=== PATIENT | male | born 1955 | race African-American/Black ===

== ENCOUNTER 2017-03-08 10:06 | Inpatient (IN) | payer MEDICAID ==
[~2017-03-08] VITALS: Ht 175.3 cm; Wt 60.3 kg
[~2017-03-08 10:06] MED LIST: ATOR10TA69 PO; TIMO15DR12 EACHEYE
[2017-03-08] MEDS ORDERED: SODIUM CHLORIDE 0.9% 1,000 ML IV ONE ×2 (10:25→12:57)
[2017-03-08] MEDS ORDERED: MORPHINE SULFATE 4 MG/ML CPJ (NOT FOR IM USE) IV STA (10:25)
[2017-03-08] MEDS ORDERED: ONDANSETRON HCL 4MG/2ML VIAL IV STA (10:25)
[2017-03-08 11:41] LABS: BASOPHILS % 0.6 % (0.0-2.0); EOSINOPHILS % 0.8 % (0.0-5.0); HEMATOCRIT. 41.9 % (42.0-52.0); LYMPHOCYTES % 39.1 % (20.0-50.0); MEAN CORPUSCULAR HEMOGLOBIN 31.1 pg (28.0-32.0); MEAN PLATELET VOLUME 9.4 fl (7.4-10.4); MONOCYTES % 9.5 % (2.0-8.0); PLATELET 188 x1000/uL (130-400); RED BLOOD CELL COUNT 4.51 mill/uL (4.7-6.1); RED CELL DISTRIBUTION WIDTH 13.9 % (11.6-14.6)
[2017-03-08 11:51] LABS: INR 1.2; PARTIAL THROMBOPLASTIN TIME 25.2 sec (24.0-34.0); PROTHROMBIN TIME 12.7 sec
[2017-03-08 11:59] LABS: CARBON DIOXIDE 31 mEq/L (21-32); CHLORIDE 102 mEq/L (98-107); ETHANOL BLOOD < 10 mg/dL; TROPONIN I 0.03 ng/mL (0.00-0.04)
[2017-03-08] MEDS ORDERED: PIPERACILLIN/TAZ 3.375G PREMIX 50 ML IV ONE (13:00)
[2017-03-08] MEDS ORDERED: ONDANSETRON HCL 4MG/2ML VIAL IV ONE (13:45)
[2017-03-08 14:00] LABS: CLARITY URINE CLOUDY (CLEAR); COLOR URINE YELLOW (YELLOW); GLUCOSE URINE NEGATIVE (NEGATIVE); KETONES URINE 1+ (NEGATIVE); LEUKOCYTE ESTERASE URINE NEGATIVE (NEGATIVE); NITRITE URINE NEGATIVE (NEGATIVE); OCCULT BLOOD URINE 2+ (NEGATIVE); PH URINE 6.5 (4.5-8.0); PROTEIN URINE 2+ (NEGATIVE); SPECIFIC GRAVITY URINE 1.021 (1.005-1.030)
[2017-03-08] MEDS ORDERED: ONDANSETRON HCL 4MG/2ML VIAL IV PRN (15:15)
[2017-03-08] MEDS ORDERED: MAGNESIUM/ALUMINUM HYDROXIDE/SIMETHICONE 30ML UDC PO PRN (15:15)
[2017-03-08] MEDS ORDERED: HYDROCODONE/ACETAMINOPHEN 5/325MG TABLET PO PRN (15:15)
[2017-03-08] MEDS ORDERED: CLONIDINE 0.1MG TABLET PO PRN (15:15)
[2017-03-08] MEDS ORDERED: ACETAMINOPHEN 325MG TABLET PO PRN (15:15)
[2017-03-08] MEDS ORDERED: DOCUSATE SODIUM 100MG CAPSULE PO PRN (15:15)
[2017-03-08] MEDS ORDERED: IPRATROPIUM/ALBUTEROL 0.5-3(2.5)MG/3ML NEB INH PRN (15:15)
[2017-03-08] MEDS ORDERED: ROCEPHIN IVPB XX SCH (17:00)
[2017-03-08 17:02] VITALS: BP 124/96
[2017-03-08 17:12] VITALS: BP 124/96
[2017-03-08 17:30] VITALS: BP 123/96
[2017-03-08] MEDS ORDERED: CHOL100026 PO (17:42)
[2017-03-08] MEDS ORDERED: LISI-604 PO (17:42)
[2017-03-08] MEDS ORDERED: METO50TA5 PO (17:42)
[2017-03-08] MEDS ORDERED: HYDR25TA PO (17:42)
[2017-03-08] MEDS ORDERED: ALBU18HF2 IH (17:42)
[2017-03-08] MEDS ORDERED: SIMV10TA6 PO (17:42)
[2017-03-08] MEDS ORDERED: OMEP20TA80 PO (17:42)
[2017-03-08] MEDS ORDERED: MOME13HF2 INH (17:42)
[2017-03-08] MEDS ORDERED: NON FORMULARY PATIENT HOME MED EA XX SCH (17:45)
[2017-03-08] MEDS: SODIUM CHLORIDE 0.9% 1,000 ML IV SCH (17:58)
[2017-03-08] MEDS ORDERED: CEFTRIAXONE 1 G PREMIX 50 ML IV SCH (18:00)
[2017-03-08] MEDS: ENOXAPARIN 40MG/0.4ML SYR SUBCUT SCH (18:05)
[2017-03-08 20:00] VITALS: BP 107/73
[2017-03-08] MEDS: METOPROLOL TARTRATE 25MG TABLET PO SCH (20:43)
[2017-03-08] MEDS: ATORVASTATIN CALCIUM 10MG TABLET PO SCH (20:48)
[2017-03-08 23:40] LABS: CREATINE KINASE MB FRACTION 4.7 ng/mL (0.5-3.6); TROPONIN I < 0.02 ng/mL (0.00-0.04)
[2017-03-08 23:44] LABS: CREATINE KINASE 1145 IU/L (39-308)
[2017-03-09] VITALS: BP 100/68
[2017-03-09] MEDS: SODIUM CHLORIDE 0.9% 1,000 ML IV SCH ×3 (02:50→22:10)
[2017-03-09 04:00] VITALS: BP 101/72
[2017-03-09 05:42] LABS: BASOPHILS % 0.8 % (0.0-2.0); HEMATOCRIT. 37.9 % (42.0-52.0); HEMOGLOBIN. 12.9 g/dL (14.0-18.0); LYMPHOCYTES % 54.2 % (20.0-50.0); MEAN CORPUSCULAR HEMOGLOBIN 31.5 pg (28.0-32.0); MEAN CORPUSCULAR VOLUME 92.2 fL (80.0-94.0); MEAN PLATELET VOLUME 9.2 fl (7.4-10.4); MONOCYTES % 8.3 % (2.0-8.0); NEUTROPHILS % 33.7 % (40.0-76.0); PLATELET 173 x1000/uL (130-400); RED BLOOD CELL COUNT 4.12 mill/uL (4.7-6.1); RED CELL DISTRIBUTION WIDTH 14.1 % (11.6-14.6)
[2017-03-09] MEDS: OMEPRAZOLE 20MG CAPSULE EXTENDED RELEASE PO SCH (06:26)
[2017-03-09 06:39] LABS: CARBON DIOXIDE 27 mEq/L (21-32); CHLORIDE 105 mEq/L (98-107); CREATINE KINASE 900 IU/L (39-308); CREATINE KINASE MB FRACTION 3.4 ng/mL (0.5-3.6); HDL CHOLESTEROL 47 mg/dL (40-59); LDL CHOLESTEROL 56 mg/dL (5-100); TROPONIN I < 0.02 ng/mL (0.00-0.04)
[2017-03-09 08:05] VITALS: BP 100/71
[2017-03-09] MEDS: LISINOPRIL 20MG TABLET PO SCH (09:00)
[2017-03-09] MEDS ORDERED: HYDROCHLOROTHIAZIDE 25MG TABLET PO SCH (09:00)
[2017-03-09 09:23] LABS: *AMPHETAMINES SCREEN URINE NEGATIVE (NEGATIVE); *BARBITURATES SCREEN URINE NEGATIVE (NEGATIVE); *BENZODIAZEPINES SCREEN URINE PRESUMTIVE POSITIVE (NEGATIVE); *COCAINE SCREEN URINE PRESUMTIVE POSITIVE (NEGATIVE); CANNABINOID URINE SCREEN NEGATIVE (NEGATIVE); METHADONE URINE SCREEN NEGATIVE (NEGATIVE); PHENCYCLIDINE URINE SCREEN NEGATIVE (NEGATIVE)
[2017-03-09] MEDS: METOPROLOL TARTRATE 25MG TABLET PO SCH ×2 (10:03→21:00)
[2017-03-09] MEDS: CHOLECALCIFEROL (D3) 1000 UNIT TABLET PO SCH ×2 (10:03→18:04)
[2017-03-09 10:07] LABS: OPIATES URINE SCREEN PRESUMTIVE POSITIVE (NEGATIVE)
[2017-03-09 12:00] VITALS: BP 104/76
[2017-03-09] MEDS ORDERED: POTASSIUM CHLORIDE 20MEQ TABLET SR PO NR (12:00)
[2017-03-09 16:00] VITALS: BP 108/68
[2017-03-09] MEDS: ENOXAPARIN 40MG/0.4ML SYR SUBCUT SCH (18:04)
[2017-03-09 20:00] VITALS: BP 116/67
[2017-03-09] MEDS: ATORVASTATIN CALCIUM 10MG TABLET PO SCH (22:06)
[2017-03-09] MEDS: CEFTRIAXONE 1 G PREMIX 50 ML IV SCH (22:06)
[2017-03-10] VITALS: BP 106/72
[2017-03-10 04:00] VITALS: BP 104/74
[2017-03-10] MEDS: OMEPRAZOLE 20MG CAPSULE EXTENDED RELEASE PO SCH (06:24)
[2017-03-10] MEDS: SODIUM CHLORIDE 0.9% 1,000 ML IV SCH ×2 (07:44→20:53)
[2017-03-10 07:48] LABS: CARBON DIOXIDE 30 mEq/L (21-32); CHLORIDE 103 mEq/L (98-107)
[2017-03-10 07:53] LABS: CREATINE KINASE 437 IU/L (39-308)
[2017-03-10 08:08] VITALS: BP 137/88
[2017-03-10 08:16] LABS: BASOPHILS % 0.5 % (0.0-2.0); EOSINOPHILS % 5.2 % (0.0-5.0); HEMATOCRIT. 37.2 % (42.0-52.0); HEMOGLOBIN. 12.8 g/dL (14.0-18.0); LYMPHOCYTES % 58.6 % (20.0-50.0); MEAN CORPUSCULAR HEMOGLOBIN 31.5 pg (28.0-32.0); MEAN CORPUSCULAR VOLUME 91.6 fL (80.0-94.0); MEAN PLATELET VOLUME 9.6 fl (7.4-10.4); MONOCYTES % 8.8 % (2.0-8.0); NEUTROPHILS % 26.9 % (40.0-76.0); PLATELET 170 x1000/uL (130-400); RED BLOOD CELL COUNT 4.06 mill/uL (4.7-6.1)
[2017-03-10] MEDS: LISINOPRIL 20MG TABLET PO SCH (08:55)
[2017-03-10] MEDS: CHOLECALCIFEROL (D3) 1000 UNIT TABLET PO SCH ×2 (08:55→16:43)
[2017-03-10] MEDS: METOPROLOL TARTRATE 25MG TABLET PO SCH ×2 (08:55→20:50)
[2017-03-10] MEDS ORDERED: POTASSIUM CHLORIDE 20MEQ TABLET SR PO NR (09:00)
[2017-03-10 12:00] VITALS: BP 103/84
[2017-03-10 16:00] VITALS: BP 120/95
[2017-03-10] MEDS: ENOXAPARIN 40MG/0.4ML SYR SUBCUT SCH (16:43)
[2017-03-10 20:00] VITALS: BP 129/87
[2017-03-10] MEDS: CEFTRIAXONE 1 G PREMIX 50 ML IV SCH (20:49)
[2017-03-10] MEDS: ATORVASTATIN CALCIUM 10MG TABLET PO SCH (20:49)
[2017-03-11] VITALS: BP 133/86
[2017-03-11 04:00] VITALS: BP 141/85
[2017-03-11] MEDS: SODIUM CHLORIDE 0.9% 1,000 ML IV SCH (05:00)
[2017-03-11] MEDS: OMEPRAZOLE 20MG CAPSULE EXTENDED RELEASE PO SCH (06:39)
[2017-03-11 07:26] LABS: CHLORIDE 108 mEq/L (98-107)
[2017-03-11 07:32] LABS: CARBON DIOXIDE 25 mEq/L (21-32)
[2017-03-11 08:20] VITALS: BP 115/88
[2017-03-11] MEDS: LISINOPRIL 20MG TABLET PO SCH (08:45)
[2017-03-11] MEDS: METOPROLOL TARTRATE 25MG TABLET PO SCH (08:45)
[2017-03-11] MEDS: CHOLECALCIFEROL (D3) 1000 UNIT TABLET PO SCH (08:45)
[2017-03-11] MEDS ORDERED: POTASSIUM CHLORIDE 20MEQ TABLET SR PO NR (11:30)
[2017-03-11 12:00] VITALS: BP 146/96
[2017-03-11 13:43] VITALS: BP 139/89
[2017-03-12 13:09] LABS: ANTI-NUCLEAR ANTIBODIES DIRECT Negative (Negative)
[2017-03-13 07:22] LABS: COMPLEMENT C3 102 mg/dL (82-167)
== END 2017-03-11 14:45 | disposition home or self-care (01) | DRG 241 ==
LOC: ER 10:22 → 6WST 13:07 → ENRESERV 14:53
PROVIDERS: ADMIT Internal Medicine; ATTEND Internal Medicine
DX: K29.70 Gastritis, unspecified, without bleeding (principal); N17.9 Acute kidney failure, unspecified; I95.9 Hypotension, unspecified; I13.0 Hypertensive heart and chronic kidney disease with heart failure and stage 1 through stage 4 chronic kidney disease, or unspecified chronic kidney disease; M62.82 Rhabdomyolysis; E87.2 Acidosis; I50.9 Heart failure, unspecified; K76.0 Fatty (change of) liver, not elsewhere classified; K80.20 Calculus of gallbladder without cholecystitis without obstruction; E78.00 Pure hypercholesterolemia, unspecified; E78.5 Hyperlipidemia, unspecified; E86.0 Dehydration; E87.6 Hypokalemia; F14.10 Cocaine abuse, uncomplicated; H40.9 Unspecified glaucoma; F11.10 Opioid abuse, uncomplicated; R80.9 Proteinuria, unspecified; N18.1 Chronic kidney disease, stage 1; Z79.899 Other long term (current) drug therapy; I25.2 Old myocardial infarction
CPT/HCPCS: 36415; 51702; 70450; 71010; 74176; 76705; 80048; 80053; 80061; 80305; 81001; 82550; 82553; 83605; 83690; 83735; 83880; 84443; 84484; 85025; 85610; 85730; 86038; 86160; 87040; 87086; 93005; 93970; 96361; 96365; 96375; 96376; 97162; 97166; 99291; G0482; J0696; J1650; J2270; J2405; J2543; J7030; A4315

== ENCOUNTER 2017-05-06 09:24 | Inpatient (IN) | payer MEDICAID ==
[2017-05-06] VITALS (7 sets, daily range): BP systolic 81–105; BP diastolic 53–72
[~2017-05-06] VITALS: Ht 175.3 cm; Wt 98.0 kg
[~2017-05-06 09:24] MED LIST changes: +ALBU18HF2 IH; +CHOL100044 PO; +HYDR25TA PO; +LISI-604 PO; +METO50TA5 PO; +MOME13HF2 INH; +OMEP20TA2 PO; +SIMV10TA6 PO
[2017-05-06] MEDS ORDERED: SODIUM CHLORIDE 0.9% 1000ML BAG (SEPSIS BOLUS) IV ONE (09:45)
[2017-05-06 10:08] LABS: BASOPHILS % 0.9 % (0.0-2.0); EOSINOPHILS % 2.8 % (0.0-5.0); HEMATOCRIT. 41.8 % (42.0-52.0); HEMOGLOBIN. 14.2 g/dL (14.0-18.0); LYMPHOCYTES % 35.6 % (20.0-50.0); MEAN CORPUSCULAR HEMOGLOBIN 30.9 pg (28.0-32.0); MEAN CORPUSCULAR VOLUME 91.3 fL (80.0-94.0); MONOCYTES % 8.5 % (2.0-8.0); NEUTROPHILS % 52.2 % (40.0-76.0); PLATELET 181 x1000/uL (130-400); RED BLOOD CELL COUNT 4.58 mill/uL (4.7-6.1); RED CELL DISTRIBUTION WIDTH 14.3 % (11.6-14.6)
[2017-05-06 10:18] LABS: CLARITY URINE CLEAR (CLEAR); COLOR URINE DARK YELLOW (YELLOW); GLUCOSE URINE NEGATIVE (NEGATIVE); KETONES URINE TRACE (NEGATIVE); LEUKOCYTE ESTERASE URINE NEGATIVE (NEGATIVE); NITRITE URINE NEGATIVE (NEGATIVE); OCCULT BLOOD URINE NEGATIVE (NEGATIVE); PH URINE 5.5 (4.5-8.0); PROTEIN URINE 2+ (NEGATIVE); SPECIFIC GRAVITY URINE 1.025 (1.005-1.030)
[2017-05-06 10:18] LABS: INR 1.1; PARTIAL THROMBOPLASTIN TIME 27.7 sec (23.4-31.0); PROTHROMBIN TIME 11.8 sec (9.4-11.6)
[2017-05-06 10:20] LABS: AMMONIA 27 uMol/L (<32)
[2017-05-06 10:24] LABS: CARBON DIOXIDE 25 mEq/L (21-32); CHLORIDE 103 mEq/L (98-107); ETHANOL BLOOD < 10 mg/dL; TROPONIN I 0.02 ng/mL (0.00-0.04)
[2017-05-06 10:29] LABS: BG BASE EXCESS -6.6 mmol/L (-2.0-2.0); BG CARBOXYHEMOGLOBIN 1.4 % (0.5-1.5); BG DEOXYHEMOGLOBIN 3.5 % (0.0-5.0); BG FRACTION INSPIRED OXYGEN 28; BG HCO3 ACT 17.5 mmol/L (22.0-26.0); BG METHEMOGLOBIN 0.3 % (0.0-1.5); BG OXYGEN SATURATION 96.4 % (92.0-98.5); BG OXYHEMOGLOBIN 94.8 % (94.0-97.0); BG PCO2 30.6 mmHg (35.0-45.0); BG PH 7.375 (7.350-7.450); BG PO2 94.2 mmHg (75.0-100.0); BG SAMPLE SITE OTHER; BG TOTAL HEMOGLOBIN 12.3 g/dL (12.0-18.0); BG VENT MODE NASAL CANNULA
[2017-05-06 10:50] LABS: *AMPHETAMINES SCREEN URINE NEGATIVE (NEGATIVE); *BARBITURATES SCREEN URINE NEGATIVE (NEGATIVE); *BENZODIAZEPINES SCREEN URINE NEGATIVE (NEGATIVE); *COCAINE SCREEN URINE PRESUMTIVE POSITIVE (NEGATIVE); CANNABINOID URINE SCREEN NEGATIVE (NEGATIVE); METHADONE URINE SCREEN NEGATIVE (NEGATIVE); OPIATES URINE SCREEN NEGATIVE (NEGATIVE); PHENCYCLIDINE URINE SCREEN NEGATIVE (NEGATIVE)
[2017-05-06] MEDS ORDERED: MAGNESIUM/ALUMINUM HYDROXIDE/SIMETHICONE 30ML UDC PO PRN (15:15)
[2017-05-06] MEDS ORDERED: DOCUSATE SODIUM 100MG CAPSULE PO PRN (15:15)
[2017-05-06] MEDS ORDERED: ACETAMINOPHEN 325MG TABLET PO PRN (15:15)
[2017-05-06] MEDS ORDERED: CLONIDINE 0.1MG TABLET PO PRN (15:15)
[2017-05-06] MEDS ORDERED: IPRATROPIUM/ALBUTEROL 0.5-3(2.5)MG/3ML NEB INH PRN (15:15)
[2017-05-06] MEDS ORDERED: ONDANSETRON HCL 4MG/2ML VIAL IV PRN (15:15)
[2017-05-06] MEDS: SODIUM CHLORIDE 0.9% 1,000 ML IV SCH (16:00)
[2017-05-06] MEDS: ENOXAPARIN 40MG/0.4ML SYR SUBCUT SCH (16:13)
[2017-05-06 17:03] LABS: CLARITY URINE CLEAR (CLEAR); COLOR URINE YELLOW (YELLOW); GLUCOSE URINE NEGATIVE (NEGATIVE); KETONES URINE NEGATIVE (NEGATIVE); LEUKOCYTE ESTERASE URINE NEGATIVE (NEGATIVE); NITRITE URINE NEGATIVE (NEGATIVE); OCCULT BLOOD URINE NEGATIVE (NEGATIVE); PROTEIN URINE NEGATIVE (NEGATIVE); SPECIFIC GRAVITY URINE 1.016 (1.005-1.030)
[2017-05-06] MEDS ORDERED: POTASSIUM CHLORIDE 20MEQ TABLET SR PO NR (18:00)
[2017-05-06 23:33] LABS: CREATINE KINASE MB FRACTION 3.4 ng/mL (0.5-3.6); TROPONIN I 0.04 ng/mL (0.00-0.04)
[2017-05-07] VITALS (16 sets, daily range): BP systolic 98–154; BP diastolic 62–101
[2017-05-07] MEDS: SODIUM CHLORIDE 0.9% 1,000 ML IV SCH ×3 (01:15→20:49)
[2017-05-07 07:19] LABS: CARBON DIOXIDE 25 mEq/L (21-32); CHLORIDE 109 mEq/L (98-107); CREATINE KINASE 533 IU/L (39-308); CREATINE KINASE MB FRACTION 2.4 ng/mL (0.5-3.6); HDL CHOLESTEROL 43 mg/dL (40-59); LDL CHOLESTEROL 102 mg/dL (5-100); TROPONIN I 0.02 ng/mL (0.00-0.04)
[2017-05-07 07:40] LABS: BASOPHILS % 0.5 % (0.0-2.0); HEMATOCRIT. 36.4 % (42.0-52.0); HEMOGLOBIN. 12.3 g/dL (14.0-18.0); LYMPHOCYTES % 54.9 % (20.0-50.0); MEAN CORPUSCULAR HEMOGLOBIN 31.3 pg (28.0-32.0); MEAN CORPUSCULAR VOLUME 92.3 fL (80.0-94.0); MEAN PLATELET VOLUME 9.4 fl (7.4-10.4); NEUTROPHILS % 31.6 % (40.0-76.0); PLATELET 159 x1000/uL (130-400); RED BLOOD CELL COUNT 3.95 mill/uL (4.7-6.1)
[2017-05-07] MEDS ORDERED: POTASSIUM CHLORIDE 20MEQ TABLET SR PO SCH (12:00)
[2017-05-07] MEDS: ENOXAPARIN 40MG/0.4ML SYR SUBCUT SCH (16:47)
[2017-05-08] VITALS (11 sets, daily range): BP systolic 117–164; BP diastolic 52–101
[2017-05-08] MEDS: SODIUM CHLORIDE 0.9% 1,000 ML IV SCH (06:42)
[2017-05-08 07:35] LABS: CHLORIDE 109 mEq/L (98-107)
[2017-05-08 07:40] LABS: CARBON DIOXIDE 27 mEq/L (21-32)
[2017-05-08] MEDS ORDERED: ENOXAPARIN 30MG/0.3ML SYR SUBCUT SCH (09:00)
[2017-05-08 09:19] LABS: BASOPHILS % 0.5 % (0.0-2.0); CARBON DIOXIDE 27 mEq/L (21-32); CHLORIDE 107 mEq/L (98-107); EOSINOPHILS % 5.6 % (0.0-5.0); HEMATOCRIT. 36.2 % (42.0-52.0); HEMOGLOBIN. 12.3 g/dL (14.0-18.0); LYMPHOCYTES % 52.7 % (20.0-50.0); MEAN CORPUSCULAR HEMOGLOBIN 31.2 pg (28.0-32.0); MEAN CORPUSCULAR VOLUME 91.7 fL (80.0-94.0); MEAN PLATELET VOLUME 9.4 fl (7.4-10.4); MONOCYTES % 8.8 % (2.0-8.0); NEUTROPHILS % 32.4 % (40.0-76.0); PLATELET 156 x1000/uL (130-400); RED BLOOD CELL COUNT 3.94 mill/uL (4.7-6.1); RED CELL DISTRIBUTION WIDTH 14.1 % (11.6-14.6)
[2017-05-08] MEDS ORDERED: POTASSIUM CHLORIDE 20MEQ TABLET SR PO NR (12:00)
[2017-05-08] MEDS ORDERED: LISI10TA5 PO (12:54)
[2017-05-08] MEDS ORDERED: SIMV10TA2 PO (12:54)
== END 2017-05-08 17:38 | disposition home or self-care (01) | DRG 133 ==
LOC: ER 09:38 → EDBEDREQ 11:15 → 3WST 11:48 → EDBEDREQ 11:49 → EDBEDREQSVC 11:51 → ENRESERV 11:57
PROVIDERS: ADMIT Internal Medicine; ATTEND Internal Medicine
PROC: 02HV33Z Insertion of Infusion Device into Superior Vena Cava, Percutaneous Approach (ICD-10-PCS; principal; 2017-05-06)
PROC: B5181ZA Fluoroscopy of Superior Vena Cava using Low Osmolar Contrast, Guidance (ICD-10-PCS; 2017-05-06)
PROC: B548ZZA Ultrasonography of Superior Vena Cava, Guidance (ICD-10-PCS; 2017-05-06)
DX: J96.00 Acute respiratory failure, unspecified whether with hypoxia or hypercapnia (principal); N17.9 Acute kidney failure, unspecified; I95.9 Hypotension, unspecified; E83.51 Hypocalcemia; E86.0 Dehydration; J44.9 Chronic obstructive pulmonary disease, unspecified; E87.6 Hypokalemia; F14.10 Cocaine abuse, uncomplicated; E78.5 Hyperlipidemia, unspecified; E78.00 Pure hypercholesterolemia, unspecified; H40.9 Unspecified glaucoma; F17.210 Nicotine dependence, cigarettes, uncomplicated; I25.10 Atherosclerotic heart disease of native coronary artery without angina pectoris; I10 Essential (primary) hypertension; I25.2 Old myocardial infarction; Z79.899 Other long term (current) drug therapy
CPT/HCPCS: 36415; 36569; 36600; 70450; 71010; 76770; 76937; 77001; 80048; 80053; 80061; 80305; 81001; 81003; 82140; 82375; 82550; 82553; 82805; 83605; 83690; 83735; 83880; 84443; 84484; 85025; 85610; 85730; 86850; 86900; 87040; 87086; 93005; 93306; 93970; 96360; 96361; 99291; C1725; G0482; J1650; J7030

== ENCOUNTER 2018-03-06 12:38 | Emergency (ER) | payer MEDICAID ==
[~2018-03-06] VITALS: Ht 172.7 cm; Wt 85.0 kg
[~2018-03-06 12:38] MED LIST changes: -ATOR10TA69 PO; -HYDR25TA PO; -LISI-604 PO; +METO25TA6 PO; -METO50TA5 PO
[2018-03-06] MEDS ORDERED: SODIUM CHLORIDE 0.9% 1,000 ML IV ONE (13:30)
[2018-03-06 14:18] LABS: BASOPHILS % 0.7 % (0.0-2.0); EOSINOPHILS % 0.9 % (0.0-5.0); HEMATOCRIT. 48.3 % (42.0-52.0); HEMOGLOBIN. 16.4 g/dL (14.0-18.0); LYMPHOCYTES % 36.8 % (20.0-50.0); MEAN CORPUSCULAR HEMOGLOBIN 30.9 pg (28.0-32.0); MEAN CORPUSCULAR VOLUME 90.9 fL (80.0-94.0); MEAN PLATELET VOLUME 8.9 fl (7.4-10.4); MONOCYTES % 6.3 % (2.0-8.0); NEUTROPHILS % 55.3 % (40.0-76.0); PLATELET 218 x1000/uL (130-400); RED BLOOD CELL COUNT 5.31 mill/uL (4.7-6.1); RED CELL DISTRIBUTION WIDTH 15.4 % (11.6-14.6)
[2018-03-06 14:25] LABS: CHLORIDE 101 mEq/L (98-107)
[2018-03-06 14:29] LABS: ETHANOL BLOOD < 10 mg/dL
[2018-03-06 16:19] VITALS: BP 133/79
[2018-03-06 18:01] LABS: *AMPHETAMINES SCREEN URINE NEGATIVE (NEGATIVE); *BARBITURATES SCREEN URINE NEGATIVE (NEGATIVE); *BENZODIAZEPINES SCREEN URINE NEGATIVE (NEGATIVE)
[2018-03-06 18:02] LABS: *COCAINE SCREEN URINE PRESUMTIVE POSITIVE (NEGATIVE); CANNABINOID URINE SCREEN NEGATIVE (NEGATIVE); METHADONE URINE SCREEN NEGATIVE (NEGATIVE); OPIATES URINE SCREEN NEGATIVE (NEGATIVE); PHENCYCLIDINE URINE SCREEN NEGATIVE (NEGATIVE)
== END 2018-03-06 16:37 | disposition home or self-care (01) ==
LOC: ER 12:38
DX: R53.1 Weakness (principal); R00.0 Tachycardia, unspecified; E78.00 Pure hypercholesterolemia, unspecified; E11.9 Type 2 diabetes mellitus without complications; Z79.899 Other long term (current) drug therapy
CPT/HCPCS: 36415; 70450; 80053; 80305; 82962; 85025; 93005; 96360; 96361; 99285; G0482; J7030

== ENCOUNTER 2018-10-23 05:58 | Emergency (ER) | payer MEDICAID ==
[~2018-10-23] VITALS: Ht 177.8 cm; Wt 100.0 kg
[~2018-10-23 05:58] MED LIST changes: -METO25TA6 PO
[2018-10-23] MEDS ORDERED: ONDANSETRON HCL 4MG/2ML INJ IV STA (07:50)
[2018-10-23] MEDS ORDERED: SODIUM CHLORIDE 0.9% 500 ML IV NR (08:30)
[2018-10-23 08:49] LABS: MEAN CORPUSCULAR HEMOGLOBIN 31.2 pg (28.0-32.0); MEAN CORPUSCULAR VOLUME 93.3 fL (80.0-94.0); MEAN PLATELET VOLUME 9.3 fl (7.4-10.4); PLATELET 198 x1000/uL (130-400); RED BLOOD CELL COUNT 4.82 mill/uL (4.7-6.1); RED CELL DISTRIBUTION WIDTH 14.3 % (11.6-14.6)
[2018-10-23 08:53] LABS: CHLORIDE 99 mEq/L (98-107)
[2018-10-23 08:55] LABS: INR 1.2; PROTHROMBIN TIME 12.3 sec (9.1-11.1)
[2018-10-23 09:14] LABS: PLATELET ESTIMATE NORMAL
[2018-10-23 10:27] LABS: CLARITY URINE CLEAR (CLEAR); KETONES URINE TRACE (NEGATIVE); LEUKOCYTE ESTERASE URINE NEGATIVE (NEGATIVE); NITRITE URINE NEGATIVE (NEGATIVE); OCCULT BLOOD URINE NEGATIVE (NEGATIVE); PROTEIN URINE 2+ (NEGATIVE); SPECIFIC GRAVITY URINE 1.025 (1.005-1.030)
[2018-10-23 10:28] LABS: COLOR URINE YELLOW (YELLOW)
[2018-10-23] MEDS ORDERED: KETOROLAC 15MG/ML VIAL IV ONE (11:45)
[2018-10-23] MEDS ORDERED: KETOROLAC 30MG/ML VIAL IV STA (13:15)
[2018-10-23] MEDS ORDERED: FAMOTIDINE 20MG/2ML VIAL IV ONE (13:15)
[2018-10-23] MEDS ORDERED: MAGNESIUM/ALUMINUM HYDROXIDE/SIMETHICONE 30ML UDC PO STA (13:15)
[2018-10-23 13:51] VITALS: BP 145/87
== END 2018-10-23 14:07 | disposition home or self-care (01) ==
LOC: ER 05:58
DX: B34.9 Viral infection, unspecified (principal); R30.0 Dysuria; I10 Essential (primary) hypertension; E78.5 Hyperlipidemia, unspecified; I25.10 Atherosclerotic heart disease of native coronary artery without angina pectoris; I25.2 Old myocardial infarction; Z59.0 Homelessness
CPT/HCPCS: 36415; 71045; 80053; 81003; 83690; 85025; 85610; 86703; 87804; 93005; 96361; 96374; 96375; 96376; 99284; J1885; J2405; J3490

== ENCOUNTER 2020-03-06 11:57 | Inpatient (IN) | payer MEDICARE, MEDICAID ==
[~2020-03-06] VITALS: Ht 177.8 cm; Wt 79.8 kg
[~2020-03-06 11:57] MED LIST changes: -SIMV10TA6 PO; +SIMV10TA97 PO
[2020-03-06] MEDS ORDERED: SODIUM CHLORIDE 0.9% 500 ML IV ONE (15:00)
[2020-03-06] MEDS ORDERED: ONDANSETRON HCL 4MG/2ML INJ IV ONE (15:00)
[2020-03-06 15:30] LABS: BASOPHILS % 0.8 % (0.0-2.0); EOSINOPHILS % 6.9 % (0.0-5.0); HEMATOCRIT. 48.4 % (42.0-52.0); HEMOGLOBIN. 16.5 g/dL (14.0-18.0); LYMPHOCYTES % 44.3 % (20.0-50.0); MEAN CORPUSCULAR HEMOGLOBIN 32.5 pg (28.0-32.0); MEAN CORPUSCULAR VOLUME 95.4 fL (80.0-94.0); MEAN PLATELET VOLUME 9.4 fl (7.4-10.4); MONOCYTES % 8.5 % (2.0-8.0); NEUTROPHILS % 39.5 % (40.0-76.0); PLATELET 232 x1000/uL (130-400); RED BLOOD CELL COUNT 5.07 mill/uL (4.7-6.1); RED CELL DISTRIBUTION WIDTH 14.3 % (11.6-14.6)
[2020-03-06 15:32] LABS: CHLORIDE 102 mEq/L (98-107)
[2020-03-06 15:34] LABS: INR 1.1
[2020-03-06] MEDS ORDERED: ONDANSETRON HCL 4MG/2ML INJ IV PRN (18:15)
[2020-03-06] MEDS ORDERED: ACETAMINOPHEN 325MG TABLET PO PRN (18:15)
[2020-03-06] MEDS ORDERED: MORPHINE SULFATE 2 MG/ML CPJ (NOT FOR IM USE) IV PRN (18:15)
[2020-03-06] MEDS ORDERED: DEXT 5%/0.45% NACL 1000ML 1,000 ML IV SCH (18:30)
[2020-03-06] MEDS ORDERED: ZOLPIDEM TARTRATE 5MG TABLET PO PRN (21:00)
[2020-03-06 21:45] VITALS: BP 101/76
[2020-03-06] MEDS ORDERED: DEXTROSE 50% WATER 50ML SYRINGE IV PRN (23:00)
[2020-03-07 04:00] VITALS: BP 112/71
[2020-03-07] MEDS: OMEPRAZOLE 20MG CAPSULE EXTENDED RELEASE PO SCH (07:02)
[2020-03-07 07:21] LABS: BASOPHILS % 0.4 % (0.0-2.0); CHLORIDE 104 mEq/L (98-107); EOSINOPHILS % 7.1 % (0.0-5.0); HEMATOCRIT. 43.4 % (42.0-52.0); HEMOGLOBIN. 14.7 g/dL (14.0-18.0); LYMPHOCYTES % 53.4 % (20.0-50.0); MEAN CORPUSCULAR HEMOGLOBIN 31.9 pg (28.0-32.0); MEAN CORPUSCULAR VOLUME 94.1 fL (80.0-94.0); MEAN PLATELET VOLUME 9.1 fl (7.4-10.4); MONOCYTES % 8.8 % (2.0-8.0); NEUTROPHILS % 30.3 % (40.0-76.0); PLATELET 202 x1000/uL (130-400); RED BLOOD CELL COUNT 4.61 mill/uL (4.7-6.1); RED CELL DISTRIBUTION WIDTH 14.4 % (11.6-14.6)
[2020-03-07 07:27] LABS: ETHANOL BLOOD < 10 mg/dL
[2020-03-07] MEDS: BLOOD SUGAR DIAGNOSTIC STRIP TEST SCH ×2 (07:31→12:43)
[2020-03-07] MEDS: INSULIN LISPRO 100 UNITS/ML SUBCUT SCH ×2 (07:31→12:43)
[2020-03-07 07:48] LABS: HEPATITIS B SURFACE ANTIGEN NEGATIVE
[2020-03-07 08:00] VITALS: BP 107/71
[2020-03-07] MEDS ORDERED: POTASSIUM CHLORIDE 20MEQ TABLET SR PO NR (08:00)
[2020-03-07 08:18] LABS: HEPATITIS A AB IGM NEGATIVE (NEGATIVE)
[2020-03-07 12:00] VITALS: BP 125/81
[2020-03-07 16:00] VITALS: BP 114/76
[2020-03-07 18:06] LABS: CLARITY URINE CLEAR (CLEAR); COLOR URINE DARK YELLOW (YELLOW); KETONES URINE TRACE (NEGATIVE); LEUKOCYTE ESTERASE URINE NEGATIVE (NEGATIVE); NITRITE URINE NEGATIVE (NEGATIVE); OCCULT BLOOD URINE NEGATIVE (NEGATIVE); PH URINE 6.5 (4.5-8.0); PROTEIN URINE TRACE (NEGATIVE); SPECIFIC GRAVITY URINE 1.029 (1.005-1.030)
[2020-03-07 18:15] LABS: *COCAINE SCREEN URINE PRESUMTIVE POSITIVE (NEGATIVE); METHADONE URINE SCREEN NEGATIVE (NEGATIVE)
[2020-03-07 18:16] LABS: *AMPHETAMINES SCREEN URINE NEGATIVE (NEGATIVE); *BARBITURATES SCREEN URINE NEGATIVE (NEGATIVE); *BENZODIAZEPINES SCREEN URINE NEGATIVE (NEGATIVE); CANNABINOID URINE SCREEN NEGATIVE (NEGATIVE); OPIATES URINE SCREEN NEGATIVE (NEGATIVE); PHENCYCLIDINE URINE SCREEN NEGATIVE (NEGATIVE)
[2020-03-07 20:00] VITALS: BP 107/66
[2020-03-08] VITALS: BP 110/70
[2020-03-08 04:00] VITALS: BP 115/75
[2020-03-08 08:00] VITALS: BP 133/91
[2020-03-08] MEDS: OMEPRAZOLE 20MG CAPSULE EXTENDED RELEASE PO SCH (10:02)
[2020-03-08 11:05] LABS: HEMOGLOBIN. 14.1 g/dL (14.0-18.0); MEAN CORPUSCULAR HEMOGLOBIN 32.3 pg (28.0-32.0); PLATELET 178 x1000/uL (130-400); RED BLOOD CELL COUNT 4.36 mill/uL (4.7-6.1); RED CELL DISTRIBUTION WIDTH 14.3 % (11.6-14.6)
[2020-03-08 11:16] LABS: CHLORIDE 105 mEq/L (98-107)
[2020-03-08 12:00] VITALS: BP 114/71
[2020-03-08 13:44] VITALS: BP 114/77
[2020-03-09 13:30] LABS: PLATELET ESTIMATE NORMAL
== END 2020-03-08 15:20 | disposition home or self-care (01) | DRG 553 ==
LOC: ER 12:10 → 6EST 17:11 → EDBEDREQ 17:15 → EDBEDREQTM 17:15 → ENRESERV 18:53 → CANRESERV 18:53 → EDBEDREQSVC 20:57 → ENRESERV 20:57
PROVIDERS: ADMIT Internal Medicine; ATTEND Internal Medicine
DX: M19.90 Unspecified osteoarthritis, unspecified site (principal); N17.0 Acute kidney failure with tubular necrosis; E78.5 Hyperlipidemia, unspecified; E87.70 Fluid overload, unspecified; F17.210 Nicotine dependence, cigarettes, uncomplicated; I12.9 Hypertensive chronic kidney disease with stage 1 through stage 4 chronic kidney disease, or unspecified chronic kidney disease; J44.9 Chronic obstructive pulmonary disease, unspecified; R74.0 Nonspecific elevation of levels of transaminase and lactic acid dehydrogenase [LDH]; N18.9 Chronic kidney disease, unspecified; F14.90 Cocaine use, unspecified, uncomplicated; Z79.899 Other long term (current) drug therapy; Z87.440 Personal history of urinary (tract) infections; I25.2 Old myocardial infarction; Z71.6 Tobacco abuse counseling; Z71.51 Drug abuse counseling and surveillance of drug abuser
CPT/HCPCS: 36415; 71045; 74176; 80048; 80053; 80305; 80320; 81003; 82962; 83036; 85025; 85651; 86705; 86709; 86803; 87340; 93005; 93970; 97162; 99285; G0480

== ENCOUNTER 2022-04-07 16:51 | Emergency (ER) | payer MEDICARE, MEDICAID ==
[~2022-04-07] VITALS: Ht 175.3 cm; Wt 86.0 kg
[~2022-04-07 16:51] MED LIST changes: -OMEP20TA2 PO; +OMEP20TA23 PO
[2022-04-07] MEDS ORDERED: ACETAMINOPHEN 325MG TABLET PO ONE (18:45)
[2022-04-07] MEDS ORDERED: TOPUD MT (20:58)
[2022-04-07 22:00] VITALS: BP 113/80
== END 2022-04-07 22:45 | disposition home or self-care (01) ==
LOC: ER 16:51
DX: N50.811 Right testicular pain (principal); F41.9 Anxiety disorder, unspecified; K59.00 Constipation, unspecified; J44.9 Chronic obstructive pulmonary disease, unspecified; I10 Essential (primary) hypertension; I25.2 Old myocardial infarction; Z87.440 Personal history of urinary (tract) infections; F14.10 Cocaine abuse, uncomplicated; Z79.899 Other long term (current) drug therapy
CPT/HCPCS: 76870; 93976; 99284

== ENCOUNTER 2024-08-01 10:35 | Emergency (ER) | payer MEDICARE, MEDICAID ==
[~2024-08-01] VITALS: Ht 175.3 cm; Wt 90.0 kg
[~2024-08-01 10:35] MED LIST changes: +MOME13HF12 INH; -MOME13HF2 INH; +TOPUD MT
[2024-08-01 10:39] VITALS: O2SAT 97
[2024-08-01] MEDS: ONDANSETRON HCL 4MG/2ML INJ IV ONE (11:13)
[2024-08-01] MEDS: ACETAMINOPHEN 325MG TABLET PO ONE (11:13)
[2024-08-01 11:55] LABS: BASOPHILS % 0.2 % (0.0-2.0); EOSINOPHILS % 1.7 % (0.0-5.0); HEMATOCRIT. 42.6 % (42.0-52.0); HEMOGLOBIN. 14.2 g/dL (14.0-18.0); LYMPHOCYTES % 9.1 % (20.0-50.0); MEAN CORPUSCULAR HEMOGLOBIN 31.4 pg (28.0-32.0); MEAN CORPUSCULAR HGB CONC 33.3 g/dL (31.0-37.0); MEAN CORPUSCULAR VOLUME 94.2 fL (80.0-94.0); MEAN PLATELET VOLUME 8.9 fl (7.4-10.4); MONOCYTES % 5.1 % (2.0-8.0); NEUTROPHILS % 83.9 % (40.0-76.0); PLATELET 201 x1000/uL (130-400); RED BLOOD CELL COUNT 4.53 mill/uL (4.7-6.1); RED CELL DISTRIBUTION WIDTH 14.2 % (11.6-14.6); WHITE BLOOD COUNT 6.2 x1000/uL (4.5-11.0)
[2024-08-01 12:07] LABS: CHLORIDE 104 mEq/L (98-107); POTASSIUM 3.8 mEq/L (3.5-5.1); SODIUM 140 mEq/L (136-145)
[2024-08-01 12:08] LABS: CALCIUM 9.5 mg/dL (8.7-10.4); CARBON DIOXIDE 29 mEq/L (21-32)
[2024-08-01 12:13] LABS: GLUCOSE 95 mg/dL (70-105); UREA NITROGEN BLOOD 15 mg/dL (9-23)
[2024-08-01 12:15] LABS: ALANINE AMINOTRANSFERASE 13 IU/L (10-49); ALBUMIN 4.4 g/dL (3.2-4.8); ASPARTATE AMINOTRANSFERASE 35 IU/L (<34); BILIRUBIN DIRECT 0.2 mg/dL (<=3.0)
[2024-08-01 12:16] LABS: BILIRUBIN TOTAL 0.8 mg/dL (0.1-1.0); PROTEIN TOTAL 7.7 g/dL (6.0-8.3)
[2024-08-01] MEDS ORDERED: ONDA-239 PO (13:01)
[2024-08-01 14:27] VITALS: BP 161/106; PULSE 91; RESP 18; TEMP 36.83628; O2SAT 97
== END 2024-08-01 14:28 | disposition home or self-care (01) ==
LOC: ER 10:35
DX: R10.12 Left upper quadrant pain (principal); R11.2 Nausea with vomiting, unspecified; R19.7 Diarrhea, unspecified; I25.2 Old myocardial infarction; I10 Essential (primary) hypertension; J44.9 Chronic obstructive pulmonary disease, unspecified; F14.10 Cocaine abuse, uncomplicated; Z79.899 Other long term (current) drug therapy
CPT/HCPCS: 99285; 74176; 96374; 80076; 80048; 83690; 85025; 36415; J2405; A4606

== ENCOUNTER 2025-07-27 03:16 | Emergency (ER) | payer MEDICARE, MEDICAID ==
[~2025-07-27] VITALS: Ht 170.2 cm; Wt 91.0 kg
[~2025-07-27 03:16] MED LIST changes: +ONDA-239 PO
[2025-07-27 03:29] VITALS: O2SAT 97
[2025-07-27 04:16] VITALS: TEMP 97.8
[2025-07-27] MEDS: ACETAMINOPHEN 325MG TABLET PO ONE (04:16)
[2025-07-27] MEDS ORDERED: ACET-2708 MT (05:24)
[2025-07-27 05:48] VITALS: BP 155/85; PULSE 76; RESP 14; O2SAT 97
== END 2025-07-27 06:03 | disposition home or self-care (01) ==
LOC: ER 03:16
DX: M79.671 Pain in right foot (principal); M79.672 Pain in left foot; M79.89 Other specified soft tissue disorders; J44.9 Chronic obstructive pulmonary disease, unspecified; I11.9 Hypertensive heart disease without heart failure; I25.2 Old myocardial infarction; Z59.00 Homelessness unspecified; Z79.899 Other long term (current) drug therapy
CPT/HCPCS: 73630; 99283